=== PATIENT | female | born 2000 | race Caucasian/White ===

== ENCOUNTER 2020-02-29 18:58 | Emergency (ER) | payer SELFPAY ==
[~2020-02-29] VITALS: Ht 165.1 cm; Wt 73.5 kg
[2020-02-29 19:02] VITALS: Ht 165.1 cm; Wt 73.5 kg
[2020-02-29 21:35] VITALS: BP 122/72
== END 2020-02-29 21:35 | disposition home or self-care (01) ==
LOC: ED 18:58
DX: M79.604 Pain in right leg (principal); R10.13 Epigastric pain
CPT/HCPCS: Q0092

== ENCOUNTER 2020-04-11 20:32 | Emergency (ER) | payer SELFPAY ==
[~2020-04-11] VITALS: Ht 165.1 cm; Wt 72.6 kg
[2020-04-11 20:39] VITALS: Ht 165.1 cm; Wt 72.6 kg
[2020-04-11 22:35] LABS: BASOPHIL % 0.6 % (0-2); PLATELET COUNT 291 x10^3mcL (130-400); RED CELL DISTRIBUTION WIDTH 14.1 % (11.5-14.5)
[2020-04-11 23:35] VITALS: BP 138/86
== END 2020-04-11 23:36 | disposition home or self-care (01) ==
LOC: ED 20:32
PROVIDERS: Emergency Medicine
DX: T19.2XXA Foreign body in vulva and vagina, initial encounter (principal); N76.0 Acute vaginitis
CPT/HCPCS: 87491; 87591; J0696

== ENCOUNTER 2020-10-29 14:03 | Emergency (ER) | payer OTHER ==
[2020-10-29 14:17] VITALS: Ht 165.1 cm
[2020-10-29 15:05] LABS: BASOPHIL % 1.3 % (0.2-1.3); PLATELET COUNT 379 x10^3mcL (179-408); RED CELL DISTRIBUTION WIDTH 13.7 % (12.3-17.7)
[2020-10-29 17:01] VITALS: BP 105/60
== END 2020-10-29 17:01 | disposition home or self-care (01) ==
LOC: ED 14:03
PROVIDERS: Emergency Medicine
DX: O03.9 Complete or unspecified spontaneous abortion without complication (principal)